=== PATIENT | female | born 1940 | race Caucasian/White ===

== ENCOUNTER 2019-02-27 08:10 | Emergency (ER) | payer MEDICARE ==
[2019-02-27] MEDS ORDERED: Silver Sulfadiazine 1% Cream 50 GM JAR ONE (08:37)
== END 2019-02-27 09:40 | disposition home or self-care (01) ==
LOC: ERS 08:10
DX: T23.271A Burn of second degree of right wrist, initial encounter (principal); X16.XXXA Contact with hot heating appliances, radiators and pipes, initial encounter
CPT/HCPCS: 16020

== ENCOUNTER 2022-02-20 23:18 | Inpatient (IN) | payer MEDICARE ==
[2022-02-20] MEDS ORDERED: VANCOMYCIN 2 GRAM/500 ML BAG 2 GM in Premix Bag 1 BAG IVPB SCH (23:45)
[2022-02-20] MEDS ORDERED: Acetaminophen 650 MG Suppository ONE (23:48)
[2022-02-20] MEDS ORDERED: Acetaminophen 500 MG TAB ONE (23:48)
[2022-02-20] MEDS ORDERED: Cefepime 2 GM VIAL ONE (23:48)
[2022-02-20 23:51] LABS: #Lymphocytes 0.8 thou/uL (1.20-3.40); #Monocytes 0.4 thou/uL (0.11-0.59); #Neutrophils 7.8 thou/uL (1.40-6.50); %Basophils 0.4 % (0.0-1.0); %Eosinophils 0.3 % (0.0-10.0); %Lymphocytes 8.5 % (21.0-51.0); %Monocytes 4.5 % (0.0-10.0); %Neutrophils 86.3 % (42.0-75.0); Mean Corpuscular Volume 78.9 fl (78.0-98.0); Red Blood Cell (RBC) Count 4.87 mill/uL (4.20-5.40); White Blood Cell (WBC) Count 9.1 10x3/uL (4.8-10.8)
[2022-02-21 00:02] LABS: ALT (SGPT) 49 U/L (8-55); AST (SGOT) 59 U/L (5-34); Albumin 2.8 g/dL (3.4-4.8); Alkaline Phosphatase 636 U/L (40-110); Anion Gap 20 mmol/L (10-20); BUN (Urea Nitrogen) 12 mg/dL (9.8-20.1); Bilirubin, Total 0.4 mg/dL (0.2-1.2); Calc. Creatinine Clearance 0 mL/min (70-130); Calcium 9.2 mg/dL (7.8-10.44); Carbon Dioxide 29 mmol/L (23-31); Chloride 95 mmol/L (98-107); Estimated GFR 88; Globulin 4.1 g/dL (2.4-3.5); Glucose 163 mg/dL (83-110); Magnesium 1.7 mg/dL (1.6-2.6); Protein, Total 6.9 g/dL (5.8-8.1); Sodium 139 mmol/L (136-145)
[2022-02-21 00:16] LABS: Anisocytosis SLIGHT = 6-15 cells (100X) (0-5/hpf); Hypochromia SLIGHT = 6-15 cells (100X) (0-5/hpf); MDiff Complete? YES; Mean Corpuscular HGB CONC 28.7 g/dL (32.0-36.0); Mean Corpuscular Hemoglobin 22.7 pg (27.0-31.0); Mean Platelet Volume 6.6 fL (7.4-10.4); Platelet Count 852 10x3/uL (130-400); Platelet Morphology Comment Appears Increased; Polychromasia SLIGHT = 2-3 cells (100X) (0-2/hpf); RBC Distribution Width 16.6 % (11.5-14.5)
[2022-02-21 01:13] LABS: SARS-CoV-2 NAA Rapid Test Not Detected (NotDetected)
[2022-02-21 02:51] LABS: Lactic Acid 2.1 mmol/L (0.5-2.2)
[2022-02-21] MEDS ORDERED: Acetaminophen 650 MG Suppository PR PRN (03:32)
[2022-02-21] MEDS ORDERED: Acetaminophen 325 MG TAB PO PRN (03:32)
[2022-02-21] MEDS: Sodium Chloride 0.9% 1,000 ML IV SCH ×3 (04:00→21:45)
[2022-02-21] MEDS ORDERED: Benzonatate 100 MG CAP PO PRN (04:17)
[2022-02-21] MEDS ORDERED: GUAIFENESIN SF SOLN 200 MG/10 ML UDCUP PO PRN (04:17)
[2022-02-21] MEDS ORDERED: Morphine 4 MG/ML VIAL ONE (04:30)
[2022-02-21] MEDS ORDERED: Morphine 4 MG/ML VIAL SLOW IVP SCH (04:30)
[2022-02-21] MEDS ORDERED: Ketorolac Tromethamine 30 MG/ML VIAL ONE ×2 (05:30→06:12)
[2022-02-21] MEDS ORDERED: Piperacillin/Tazobactam 3.375 GM in Sodium Chloride 0.9% 100 ML IVPB SCH ×3 (06:00→22:00)
[2022-02-21] MEDS ORDERED: Piperacillin/Tazobactam 3.375 GM VIAL ONE ×2 (06:12→11:24)
[2022-02-21 08:12] LABS: INR-International Normal Ratio 1.3; Prothrombin Time 16.6 sec (12.0-14.7)
[2022-02-21 08:13] LABS: PTT 36.7 sec (22.9-36.1)
[2022-02-21] MEDS: Piperacillin/Tazobactam 3.375 GM in Sodium Chloride 0.9% 100 ML IVPB SCH ×2 (11:33→21:52)
[2022-02-21] MEDS ORDERED: FENTANYL 50 MCG/ML 1 ML VIAL ONE (12:52)
[2022-02-21] MEDS ORDERED: Midazolam HCl 2 mg/2 ml Vial ONE (12:52)
[2022-02-21] MEDS ORDERED: Sodium Bicarbonate 2.5 MEQ/5 ML VIAL ONE (12:52)
[2022-02-21 13:39] LABS: Bacteria/HPF None Seen HPF (None Seen); Bilirubin Negative (Negative); Blood, Urine Negative (Negative); Clarity Clear (Clear); Glucose, Urine (Dipstick) Normal (Negative); Ketone, Urine Trace mg/dL (Negative); Leukocyte Negative Leu/uL (Negative); Nitrite Negative (Negative); Protein, Urine (Dipstick) 50 mg/dL (Neg-Trace); RBC/HPF 0-3 HPF (0-3); Urobilinogen Normal mg/dL (Less than 2); WBC/HPF 0-3 HPF (0-3); pH, Urine 5.5 (5.0-9.0)
[2022-02-21 13:41] LABS: Specific Gravity, Urine Greater than 1.060 (1.002-1.036)
[2022-02-21] MEDS ORDERED: Iopamidol-370 76% 500 ML 1 ML ONE (13:47)
[2022-02-21 15:46] LABS: BF Color Brown; Clarity Cloudy/Turbid (Clear)
[2022-02-21 18:50] VITALS: BMI 34.5
[2022-02-21] MEDS: Vancomycin 1 GM in Premix Bag 1 BAG IVPB SCH (23:02)
[2022-02-22] MEDS: Sodium Chloride 0.9% 1,000 ML IV SCH ×4 (03:02→20:59)
[2022-02-22 04:58] LABS: ALT (SGPT) 29 U/L (8-55); AST (SGOT) 46 U/L (5-34); Albumin 1.8 g/dL (3.4-4.8); Alkaline Phosphatase 402 U/L (40-110); Anion Gap 15 mmol/L (10-20); BUN (Urea Nitrogen) 14 mg/dL (9.8-20.1); Bilirubin, Total 0.3 mg/dL (0.2-1.2); Calc. Creatinine Clearance 140 mL/min (70-130); Calcium 8.3 mg/dL (7.8-10.44); Carbon Dioxide 24 mmol/L (23-31); Chloride 104 mmol/L (98-107); Estimated GFR 95; Glucose 97 mg/dL (83-110); Potassium 5.2 mmol/L (3.5-5.1); Protein, Total 5.8 g/dL (5.8-8.1); Sodium 138 mmol/L (136-145)
[2022-02-22] MEDS: Piperacillin/Tazobactam 3.375 GM in Sodium Chloride 0.9% 100 ML IVPB SCH ×3 (05:28→20:59)
[2022-02-22 08:13] LABS: #Lymphocytes 0.8 thou/uL (1.20-3.40); #Monocytes 0.5 thou/uL (0.11-0.59); %Basophils 0.2 % (0.0-1.0); %Eosinophils 0.2 % (0.0-10.0); %Lymphocytes 5.1 % (21.0-51.0); %Monocytes 3.1 % (0.0-10.0); %Neutrophils 91.4 % (42.0-75.0); Hemoglobin 8.2 g/dL (12.0-16.0); Mean Corpuscular HGB CONC 27.3 g/dL (32.0-36.0); Mean Corpuscular Hemoglobin 22.4 pg (27.0-31.0); Mean Corpuscular Volume 81.9 fl (78.0-98.0); Mean Platelet Volume 6.4 fL (7.4-10.4); Platelet Count 546 10x3/uL (130-400); RBC Distribution Width 16.4 % (11.5-14.5); Red Blood Cell (RBC) Count 3.69 mill/uL (4.20-5.40); White Blood Cell (WBC) Count 16.4 10x3/uL (4.8-10.8)
[2022-02-22 08:56] LABS: MDiff Complete? YES; Polychromasia SLIGHT = 2-3 cells (100X) (0-2/hpf)
[2022-02-22] MEDS: Vancomycin 1 GM in Premix Bag 1 BAG IVPB SCH (11:29)
[2022-02-22] MEDS: Heparin 5,000 UNITS/ML VIAL SC SCH ×2 (14:15→21:35)
[2022-02-23] MEDS: Vancomycin 1 GM in Premix Bag 1 BAG IVPB SCH ×2 (01:10→12:10)
[2022-02-23] MEDS: Piperacillin/Tazobactam 3.375 GM in Sodium Chloride 0.9% 100 ML IVPB SCH ×3 (06:13→21:02)
[2022-02-23] MEDS ORDERED: Enoxaparin Sodium 100 MG/ML SYRINGE SC SCH (09:30)
[2022-02-23] MEDS: Heparin 5,000 UNITS/ML VIAL SC SCH (10:06)
[2022-02-23] MEDS: Sodium Chloride 0.9% 1,000 ML IV SCH ×4 (10:12→20:03)
[2022-02-23 10:57] LABS: #Eosinphils 0.1 thou/uL (0.0-0.7); #Lymphocytes 0.8 thou/uL (1.20-3.40); #Monocytes 0.5 thou/uL (0.11-0.59); #Neutrophils 15.3 thou/uL (1.40-6.50); %Basophils 0.3 % (0.0-1.0); %Eosinophils 0.6 % (0.0-10.0); %Monocytes 2.8 % (0.0-10.0); %Neutrophils 91.3 % (42.0-75.0); Hemoglobin 8.2 g/dL (12.0-16.0); Mean Corpuscular Volume 82.1 fl (78.0-98.0); Mean Platelet Volume 6.7 fL (7.4-10.4); Platelet Count 574 10x3/uL (130-400); RBC Distribution Width 16.2 % (11.5-14.5); Red Blood Cell (RBC) Count 3.55 mill/uL (4.20-5.40); White Blood Cell (WBC) Count 16.8 10x3/uL (4.8-10.8)
[2022-02-23 11:07] LABS: Vancomycin, Trough 13.5 ug/mL
[2022-02-23] MEDS ORDERED: VANCOMYCIN 1.25 GM/250 ML BAG 1.25 GM in Premix Bag 1 BAG IVPB SCH (12:00)
[2022-02-23] MEDS: Enoxaparin Sodium 100 MG/ML SYRINGE SC SCH (21:02)
[2022-02-24 05:04] LABS: Anion Gap 10 mmol/L (10-20); Calc. Creatinine Clearance 137 mL/min (70-130); Calcium 8.5 mg/dL (7.8-10.44); Carbon Dioxide 34 mmol/L (23-31); Chloride 102 mmol/L (98-107); Estimated GFR 95; Glucose 117 mg/dL (83-110); Magnesium 1.9 mg/dL (1.6-2.6); Potassium 4.4 mmol/L (3.5-5.1); Sodium 142 mmol/L (136-145)
[2022-02-24 05:55] LABS: #Eosinphils 0.1 thou/uL (0.0-0.7); #Lymphocytes 1.1 thou/uL (1.20-3.40); #Monocytes 0.5 thou/uL (0.11-0.59); #Neutrophils 12.7 thou/uL (1.40-6.50); %Basophils 0.1 % (0.0-1.0); %Lymphocytes 7.5 % (21.0-51.0); %Monocytes 3.6 % (0.0-10.0); %Neutrophils 87.8 % (42.0-75.0); Hemoglobin 8.1 g/dL (12.0-16.0); Mean Corpuscular HGB CONC 28.4 g/dL (32.0-36.0); Mean Corpuscular Volume 80.8 fl (78.0-98.0); Mean Platelet Volume 6.1 fL (7.4-10.4); Platelet Count 519 10x3/uL (130-400); Red Blood Cell (RBC) Count 3.51 mill/uL (4.20-5.40); White Blood Cell (WBC) Count 14.5 10x3/uL (4.8-10.8)
[2022-02-24] MEDS: Piperacillin/Tazobactam 3.375 GM in Sodium Chloride 0.9% 100 ML IVPB SCH ×3 (06:17→21:04)
[2022-02-24 08:19] LABS: BUN (Urea Nitrogen) 11 mg/dL (9.8-20.1)
[2022-02-24] MEDS: Enoxaparin Sodium 100 MG/ML SYRINGE SC SCH ×2 (09:51→21:04)
[2022-02-24] MEDS: Sodium Chloride 0.9% 1,000 ML IV SCH (16:03)
[2022-02-25] MEDS: HYDROcodone/Acetaminophen 5/325 mg Tablet PO PRN ×2 (01:55→20:16)
[2022-02-25 05:21] LABS: ALT (SGPT) 19 U/L (8-55); AST (SGOT) 34 U/L (5-34); Alkaline Phosphatase 564 U/L (40-110); Anion Gap 11 mmol/L (10-20); BUN (Urea Nitrogen) 9 mg/dL (9.8-20.1); Bilirubin, Total 0.2 mg/dL (0.2-1.2); Calc. Creatinine Clearance 140 mL/min (70-130); Calcium 8.5 mg/dL (7.8-10.44); Carbon Dioxide 34 mmol/L (23-31); Chloride 100 mmol/L (98-107); Estimated GFR 95; Globulin 3.4 g/dL (2.4-3.5); Glucose 128 mg/dL (83-110); Potassium 4.3 mmol/L (3.5-5.1); Protein, Total 5.4 g/dL (5.8-8.1); Sodium 141 mmol/L (136-145)
[2022-02-25 05:26] LABS: #Basophils 0.1 thou/uL (0.0-0.2); #Eosinphils 0.1 thou/uL (0.0-0.7); #Lymphocytes 0.9 thou/uL (1.20-3.40); #Monocytes 0.6 thou/uL (0.11-0.59); #Neutrophils 9.8 thou/uL (1.40-6.50); %Basophils 0.4 % (0.0-1.0); %Eosinophils 1.2 % (0.0-10.0); %Lymphocytes 7.6 % (21.0-51.0); %Monocytes 5.1 % (0.0-10.0); %Neutrophils 85.6 % (42.0-75.0); Hemoglobin 7.8 g/dL (12.0-16.0); Mean Corpuscular HGB CONC 28.3 g/dL (32.0-36.0); Mean Corpuscular Hemoglobin 23.1 pg (27.0-31.0); Mean Corpuscular Volume 81.9 fl (78.0-98.0); Platelet Count 479 10x3/uL (130-400); RBC Distribution Width 16.4 % (11.5-14.5); Red Blood Cell (RBC) Count 3.36 mill/uL (4.20-5.40); White Blood Cell (WBC) Count 11.4 10x3/uL (4.8-10.8)
[2022-02-25] MEDS: Piperacillin/Tazobactam 3.375 GM in Sodium Chloride 0.9% 100 ML IVPB SCH ×3 (05:37→21:39)
[2022-02-25] MEDS: Lansoprazole 3 MG/ML ORAL SUSPENSION PO SCH (08:41)
[2022-02-25] MEDS: Enoxaparin Sodium 100 MG/ML SYRINGE SC SCH ×2 (10:01→20:17)
[2022-02-25] MEDS: Sodium Chloride 0.9% 1,000 ML IV SCH (16:29)
[2022-02-26 05:04] LABS: #Eosinphils 0.1 thou/uL (0.0-0.7); #Lymphocytes 0.9 thou/uL (1.20-3.40); #Monocytes 0.6 thou/uL (0.11-0.59); %Basophils 0.2 % (0.0-1.0); %Eosinophils 0.9 % (0.0-10.0); %Lymphocytes 7.8 % (21.0-51.0); %Monocytes 5.2 % (0.0-10.0); %Neutrophils 85.9 % (42.0-75.0); Hemoglobin 7.9 g/dL (12.0-16.0); Mean Corpuscular HGB CONC 29.2 g/dL (32.0-36.0); Mean Corpuscular Hemoglobin 23.5 pg (27.0-31.0); Mean Corpuscular Volume 80.4 fl (78.0-98.0); Mean Platelet Volume 7.1 fL (7.4-10.4); Platelet Count 484 10x3/uL (130-400); RBC Distribution Width 15.9 % (11.5-14.5); Red Blood Cell (RBC) Count 3.37 mill/uL (4.20-5.40); White Blood Cell (WBC) Count 11.6 10x3/uL (4.8-10.8)
[2022-02-26] MEDS: Piperacillin/Tazobactam 3.375 GM in Sodium Chloride 0.9% 100 ML IVPB SCH ×3 (05:06→22:30)
[2022-02-26 05:26] LABS: ALT (SGPT) 20 U/L (8-55); AST (SGOT) 36 U/L (5-34); Alkaline Phosphatase 542 U/L (40-110); Anion Gap 11 mmol/L (10-20); BUN (Urea Nitrogen) 8 mg/dL (9.8-20.1); Calc. Creatinine Clearance 159 mL/min (70-130); Calcium 8.8 mg/dL (7.8-10.44); Carbon Dioxide 36 mmol/L (23-31); Chloride 96 mmol/L (98-107); Estimated GFR 98; Globulin 3.5 g/dL (2.4-3.5); Glucose 100 mg/dL (83-110); Potassium 4.2 mmol/L (3.5-5.1); Protein, Total 5.5 g/dL (5.8-8.1); Sodium 139 mmol/L (136-145)
[2022-02-26 06:41] LABS: Bilirubin, Total 0.2 mg/dL (0.2-1.2)
[2022-02-26] MEDS ORDERED: Lansoprazole 15 MG/5 ML (BATCHED)UDCUP PO SCH (09:45)
[2022-02-26] MEDS: Enoxaparin Sodium 100 MG/ML SYRINGE SC SCH ×2 (10:11→22:29)
[2022-02-26] MEDS: HYDROcodone/Acetaminophen 5/325 mg Tablet PO PRN ×2 (14:49→22:29)
[2022-02-26] MEDS: Sodium Chloride 0.9% 1,000 ML IV SCH (17:04)
[2022-02-27 05:20] LABS: ALT (SGPT) 19 U/L (8-55); AST (SGOT) 39 U/L (5-34); Albumin 2.1 g/dL (3.4-4.8); Alkaline Phosphatase 494 U/L (40-110); BUN (Urea Nitrogen) 9 mg/dL (9.8-20.1); Bilirubin, Total 0.3 mg/dL (0.2-1.2); Calc. Creatinine Clearance 163 mL/min (70-130); Calcium 8.6 mg/dL (7.8-10.44); Estimated GFR 99; Globulin 3.6 g/dL (2.4-3.5); Glucose 127 mg/dL (83-110); Protein, Total 5.7 g/dL (5.8-8.1)
[2022-02-27 05:39] LABS: Anion Gap 16 mmol/L (10-20); Carbon Dioxide 33 mmol/L (23-31); Chloride 94 mmol/L (98-107); Potassium 3.6 mmol/L (3.5-5.1); Sodium 139 mmol/L (136-145)
[2022-02-27 06:06] LABS: #Eosinphils 0.2 thou/uL (0.0-0.7); #Monocytes 0.8 thou/uL (0.11-0.59); #Neutrophils 10.2 thou/uL (1.40-6.50); %Basophils 0.1 % (0.0-1.0); %Eosinophils 1.5 % (0.0-10.0); %Lymphocytes 8.5 % (21.0-51.0); %Monocytes 6.3 % (0.0-10.0); %Neutrophils 83.6 % (42.0-75.0); Hemoglobin 8.1 g/dL (12.0-16.0); Mean Corpuscular HGB CONC 29.2 g/dL (32.0-36.0); Mean Corpuscular Hemoglobin 23.1 pg (27.0-31.0); Mean Corpuscular Volume 79.3 fl (78.0-98.0); Mean Platelet Volume 6.8 fL (7.4-10.4); Platelet Count 476 10x3/uL (130-400); RBC Distribution Width 16.1 % (11.5-14.5); Red Blood Cell (RBC) Count 3.51 mill/uL (4.20-5.40); White Blood Cell (WBC) Count 12.2 10x3/uL (4.8-10.8)
[2022-02-27] MEDS: Piperacillin/Tazobactam 3.375 GM in Sodium Chloride 0.9% 100 ML IVPB SCH (06:59)
[2022-02-27] MEDS: Enoxaparin Sodium 100 MG/ML SYRINGE SC SCH ×2 (10:33→21:18)
[2022-02-27] MEDS: Lansoprazole 15 MG/5 ML (BATCHED)UDCUP PO SCH (10:33)
[2022-02-27] MEDS ORDERED: Meropenem 1 GM in Sodium Chloride 0.9% 100 ML IVPB SCH ×2 (11:45→14:00)
[2022-02-27] MEDS: Lansoprazole 3 MG/ML ORAL SUSPENSION PO SCH (12:07)
[2022-02-27] MEDS: Sodium Chloride 0.9% 1,000 ML IV SCH (19:23)
[2022-02-27] MEDS: HYDROcodone/Acetaminophen 5/325 mg Tablet PO PRN (21:18)
[2022-02-27] MEDS ORDERED: Nitroglycerin 0.4 MG TAB (25 Tab Bottle) SL PRN (21:25)
[2022-02-27 22:19] LABS: Troponin I Less than 0.010 ng/mL (< 0.028)
[2022-02-27] MEDS: Meropenem 1 GM in Sodium Chloride 0.9% 100 ML IVPB SCH (23:25)
[2022-02-28 04:43] LABS: #Eosinphils 0.1 thou/uL (0.0-0.7); #Lymphocytes 1.2 thou/uL (1.20-3.40); #Monocytes 0.7 thou/uL (0.11-0.59); #Neutrophils 9.1 thou/uL (1.40-6.50); %Basophils 0.2 % (0.0-1.0); %Eosinophils 1.3 % (0.0-10.0); %Lymphocytes 10.9 % (21.0-51.0); %Monocytes 6.2 % (0.0-10.0); %Neutrophils 81.4 % (42.0-75.0); Hemoglobin 8.4 g/dL (12.0-16.0); Mean Corpuscular HGB CONC 28.9 g/dL (32.0-36.0); Mean Corpuscular Volume 79.6 fl (78.0-98.0); Mean Platelet Volume 6.9 fL (7.4-10.4); Platelet Count 506 10x3/uL (130-400); RBC Distribution Width 16.9 % (11.5-14.5); Red Blood Cell (RBC) Count 3.64 mill/uL (4.20-5.40); White Blood Cell (WBC) Count 11.2 10x3/uL (4.8-10.8)
[2022-02-28 05:05] LABS: Anion Gap 18 mmol/L (10-20); Carbon Dioxide 33 mmol/L (23-31); Chloride 95 mmol/L (98-107); Potassium 3.6 mmol/L (3.5-5.1); Sodium 142 mmol/L (136-145)
[2022-02-28 05:06] LABS: ALT (SGPT) 18 U/L (8-55); AST (SGOT) 37 U/L (5-34); Alkaline Phosphatase 487 U/L (40-110); BUN (Urea Nitrogen) 10 mg/dL (9.8-20.1); Bilirubin, Total Less than 0.2 mg/dL (0.2-1.2); Calc. Creatinine Clearance 163 mL/min (70-130); Calcium 8.6 mg/dL (7.8-10.44); Estimated GFR 99; Globulin 3.5 g/dL (2.4-3.5); Glucose 110 mg/dL (83-110); Protein, Total 5.5 g/dL (5.8-8.1)
[2022-02-28] MEDS: Meropenem 1 GM in Sodium Chloride 0.9% 100 ML IVPB SCH ×3 (05:54→23:02)
[2022-02-28] MEDS: Enoxaparin Sodium 100 MG/ML SYRINGE SC SCH ×2 (09:34→21:10)
[2022-02-28] MEDS: Lansoprazole 15 MG/5 ML (BATCHED)UDCUP PO SCH (09:34)
[2022-02-28] MEDS ORDERED: Iopamidol 370 76% 100 ML VIAL ONE (10:08)
[2022-02-28] MEDS: HYDROcodone/Acetaminophen 5/325 mg Tablet PO PRN (14:55)
[2022-03-01] MEDS: HYDROcodone/Acetaminophen 5/325 mg Tablet PO PRN ×2 (04:10→20:56)
[2022-03-01] MEDS: Meropenem 1 GM in Sodium Chloride 0.9% 100 ML IVPB SCH ×3 (05:27→21:03)
[2022-03-01 05:31] LABS: #Eosinphils 0.1 thou/uL (0.0-0.7); #Lymphocytes 1.1 thou/uL (1.20-3.40); #Monocytes 0.7 thou/uL (0.11-0.59); #Neutrophils 9.5 thou/uL (1.40-6.50); %Basophils 0.1 % (0.0-1.0); %Lymphocytes 9.9 % (21.0-51.0); %Monocytes 6.4 % (0.0-10.0); %Neutrophils 82.5 % (42.0-75.0); Hemoglobin 8.1 g/dL (12.0-16.0); Mean Corpuscular HGB CONC 28.5 g/dL (32.0-36.0); Mean Corpuscular Hemoglobin 22.8 pg (27.0-31.0); Mean Corpuscular Volume 79.9 fl (78.0-98.0); Mean Platelet Volume 6.8 fL (7.4-10.4); Platelet Count 495 10x3/uL (130-400); RBC Distribution Width 17.1 % (11.5-14.5); Red Blood Cell (RBC) Count 3.55 mill/uL (4.20-5.40); White Blood Cell (WBC) Count 11.5 10x3/uL (4.8-10.8)
[2022-03-01 05:44] LABS: ALT (SGPT) 17 U/L (8-55); AST (SGOT) 37 U/L (5-34); Albumin 2.1 g/dL (3.4-4.8); Alkaline Phosphatase 470 U/L (40-110); BUN (Urea Nitrogen) 9 mg/dL (9.8-20.1); Bilirubin, Total 0.2 mg/dL (0.2-1.2); Calc. Creatinine Clearance 170 mL/min (70-130); Calcium 8.5 mg/dL (7.8-10.44); Estimated GFR 100; Globulin 3.3 g/dL (2.4-3.5); Glucose 145 mg/dL (83-110); Magnesium 1.8 mg/dL (1.6-2.6); Phosphorus 2.2 mg/dL (2.3-4.7); Protein, Total 5.4 g/dL (5.8-8.1)
[2022-03-01 05:53] LABS: Anion Gap 15 mmol/L (10-20); Carbon Dioxide 35 mmol/L (23-31); Chloride 94 mmol/L (98-107); Potassium 3.9 mmol/L (3.5-5.1); Sodium 140 mmol/L (136-145)
[2022-03-01] MEDS: Lansoprazole 15 MG/5 ML (BATCHED)UDCUP PO SCH (09:40)
[2022-03-01] MEDS: Enoxaparin Sodium 100 MG/ML SYRINGE SC SCH ×2 (09:42→20:56)
[2022-03-02] MEDS: HYDROcodone/Acetaminophen 5/325 mg Tablet PO PRN ×4 (03:44→23:03)
[2022-03-02] MEDS: Meropenem 1 GM in Sodium Chloride 0.9% 100 ML IVPB SCH ×3 (05:24→21:54)
[2022-03-02] MEDS: Enoxaparin Sodium 100 MG/ML SYRINGE SC SCH ×2 (08:54→21:54)
[2022-03-02] MEDS: Lansoprazole 15 MG/5 ML (BATCHED)UDCUP PO SCH (10:18)
[2022-03-03] MEDS: Meropenem 1 GM in Sodium Chloride 0.9% 100 ML IVPB SCH ×3 (05:45→21:15)
[2022-03-03] MEDS: Enoxaparin Sodium 100 MG/ML SYRINGE SC SCH ×2 (08:36→20:00)
[2022-03-03] MEDS: Lansoprazole 15 MG/5 ML (BATCHED)UDCUP PO SCH (09:36)
[2022-03-03] MEDS: HYDROcodone/Acetaminophen 5/325 mg Tablet PO PRN (20:00)
[2022-03-04] MEDS: Meropenem 1 GM in Sodium Chloride 0.9% 100 ML IVPB SCH ×3 (05:32→20:28)
[2022-03-04] MEDS: Enoxaparin Sodium 100 MG/ML SYRINGE SC SCH ×2 (09:38→20:28)
[2022-03-04] MEDS: Lansoprazole 15 MG/5 ML (BATCHED)UDCUP PO SCH (09:43)
[2022-03-04] MEDS: HYDROcodone/Acetaminophen 5/325 mg Tablet PO PRN ×2 (14:19→22:42)
[2022-03-05] MEDS: Meropenem 1 GM in Sodium Chloride 0.9% 100 ML IVPB SCH ×3 (05:37→21:20)
[2022-03-05 06:37] LABS: Hemoglobin 8.1 g/dL (12.0-16.0); Mean Corpuscular Hemoglobin 23.5 pg (27.0-31.0); Mean Corpuscular Volume 80.9 fl (78.0-98.0); Mean Platelet Volume 6.7 fL (7.4-10.4); Platelet Count 528 10x3/uL (130-400); Red Blood Cell (RBC) Count 3.46 mill/uL (4.20-5.40); White Blood Cell (WBC) Count 14.8 10x3/uL (4.8-10.8)
[2022-03-05 06:52] LABS: BUN (Urea Nitrogen) 10 mg/dL (9.8-20.1); Calc. Creatinine Clearance 175 mL/min (70-130); Calcium 8.9 mg/dL (7.8-10.44); Estimated GFR 101; Glucose 101 mg/dL (83-110)
[2022-03-05 07:01] LABS: Anion Gap 17 mmol/L (10-20); Carbon Dioxide 38 mmol/L (23-31); Chloride 86 mmol/L (98-107); Potassium 4.8 mmol/L (3.5-5.1); Sodium 136 mmol/L (136-145)
[2022-03-05] MEDS: Lansoprazole 15 MG/5 ML (BATCHED)UDCUP PO SCH (08:48)
[2022-03-05] MEDS: Enoxaparin Sodium 100 MG/ML SYRINGE SC SCH ×2 (08:48→21:20)
[2022-03-06] MEDS: Meropenem 1 GM in Sodium Chloride 0.9% 100 ML IVPB SCH ×3 (05:17→21:29)
[2022-03-06] MEDS: HYDROcodone/Acetaminophen 5/325 mg Tablet PO PRN (07:47)
[2022-03-06] MEDS: Lansoprazole 15 MG/5 ML (BATCHED)UDCUP PO SCH (08:36)
[2022-03-06] MEDS: Enoxaparin Sodium 100 MG/ML SYRINGE SC SCH ×2 (08:38→21:29)
[2022-03-07] MEDS: HYDROcodone/Acetaminophen 5/325 mg Tablet PO PRN (02:57)
[2022-03-07] MEDS: Meropenem 1 GM in Sodium Chloride 0.9% 100 ML IVPB SCH ×3 (06:18→21:36)
[2022-03-07] MEDS: Lansoprazole 15 MG/5 ML (BATCHED)UDCUP PO SCH (08:10)
[2022-03-07] MEDS: Enoxaparin Sodium 100 MG/ML SYRINGE SC SCH (08:10)
[2022-03-07] MEDS: Apixaban 5 MG TAB PO SCH (21:36)
[2022-03-08] MEDS: HYDROcodone/Acetaminophen 5/325 mg Tablet PO PRN ×2 (03:38→23:01)
[2022-03-08 05:14] LABS: #Eosinphils 0.1 thou/uL (0.0-0.7); #Lymphocytes 0.9 thou/uL (1.20-3.40); #Monocytes 0.9 thou/uL (0.11-0.59); %Eosinophils 1.2 % (0.0-10.0); %Lymphocytes 10.5 % (21.0-51.0); %Monocytes 9.9 % (0.0-10.0); %Neutrophils 78.5 % (42.0-75.0); Hemoglobin 6.8 g/dL (12.0-16.0); Mean Corpuscular HGB CONC 28.3 g/dL (32.0-36.0); Mean Platelet Volume 6.5 fL (7.4-10.4); Platelet Count 506 10x3/uL (130-400); RBC Distribution Width 18.6 % (11.5-14.5); Red Blood Cell (RBC) Count 2.97 mill/uL (4.20-5.40)
[2022-03-08] MEDS: Meropenem 1 GM in Sodium Chloride 0.9% 100 ML IVPB SCH ×3 (05:29→22:18)
[2022-03-08] MEDS: Apixaban 5 MG TAB PO SCH ×2 (08:39→22:18)
[2022-03-08] MEDS: Lansoprazole 15 MG/5 ML (BATCHED)UDCUP PO SCH (08:42)
[2022-03-08 18:47] LABS: Hemoglobin 7.5 g/dL (12.0-16.0)
[2022-03-09 05:47] LABS: #Eosinphils 0.1 thou/uL (0.0-0.7); #Lymphocytes 1.1 thou/uL (1.20-3.40); #Monocytes 1.2 thou/uL (0.11-0.59); #Neutrophils 7.7 thou/uL (1.40-6.50); %Basophils 0.3 % (0.0-1.0); %Eosinophils 1.4 % (0.0-10.0); %Lymphocytes 10.4 % (21.0-51.0); %Monocytes 11.4 % (0.0-10.0); %Neutrophils 76.5 % (42.0-75.0); Hemoglobin 7.3 g/dL (12.0-16.0); Mean Corpuscular HGB CONC 28.9 g/dL (32.0-36.0); Mean Corpuscular Hemoglobin 23.1 pg (27.0-31.0); Mean Platelet Volume 6.6 fL (7.4-10.4); Platelet Count 503 10x3/uL (130-400); RBC Distribution Width 18.3 % (11.5-14.5); Red Blood Cell (RBC) Count 3.17 mill/uL (4.20-5.40); White Blood Cell (WBC) Count 10.1 10x3/uL (4.8-10.8)
[2022-03-09] MEDS: Meropenem 1 GM in Sodium Chloride 0.9% 100 ML IVPB SCH ×3 (06:28→21:48)
[2022-03-09] MEDS: Apixaban 5 MG TAB PO SCH ×2 (09:25→21:48)
[2022-03-09] MEDS: Lansoprazole 15 MG/5 ML (BATCHED)UDCUP PO SCH (09:25)
[2022-03-10] MEDS: Meropenem 1 GM in Sodium Chloride 0.9% 100 ML IVPB SCH (05:31)
[2022-03-10 07:23] VITALS: BP 114/72; TEMP 97.7
[2022-03-10] MEDS ORDERED: Amoxicillin/Potassium Clav 875 MG TAB PO SCH (09:00)
[2022-03-10] MEDS ORDERED: metroNIDAZOLE 500 MG TAB PO SCH (09:00)
[2022-03-10] MEDS: Apixaban 5 MG TAB PO SCH (09:28)
[2022-03-10] MEDS: Lansoprazole 15 MG/5 ML (BATCHED)UDCUP PO SCH (09:29)
[2022-03-10] MEDS: HYDROcodone/Acetaminophen 5/325 mg Tablet PO PRN (12:26)
== END 2022-03-10 16:50 | DRG 871 ==
LOC: ERS 23:18 → ERHOLD 02-21 02:11 → 2NO 02-21 17:59 → MSONC 03-02 15:28
PROVIDERS: ADMIT Internal Medicine; ATTEND Internal Medicine
PROC: 0W9G30Z Drainage of Peritoneal Cavity with Drainage Device, Percutaneous Approach (ICD-10-PCS; principal; 2022-02-21)
PROC: 3E03329 Introduction of Other Anti-infective into Peripheral Vein, Percutaneous Approach (ICD-10-PCS; 2022-02-21)
PROC: 0W9G30Z Drainage of Peritoneal Cavity with Drainage Device, Percutaneous Approach (ICD-10-PCS; 2022-03-06)
DX: A41.51 Sepsis due to Escherichia coli [E. coli] (principal); K63.1 Perforation of intestine (nontraumatic); K65.1 Peritoneal abscess; K63.0 Abscess of intestine; C18.9 Malignant neoplasm of colon, unspecified; C78.7 Secondary malignant neoplasm of liver and intrahepatic bile duct; C18.0 Malignant neoplasm of cecum; J90 Pleural effusion, not elsewhere classified; I82.890 Acute embolism and thrombosis of other specified veins; Z20.822 Contact with and (suspected) exposure to COVID-19; Z90.49 Acquired absence of other specified parts of digestive tract; Z98.890 Other specified postprocedural states; Z90.710 Acquired absence of both cervix and uterus; Z98.51 Tubal ligation status
CPT/HCPCS: 36415; 49020; 70450; 71045; 71275; 74177; 77002; 80048; 80053; 80202; 81003; 81015; 83605; 83735; 83880; 84100; 84443; 84484; 85025; 85027; 85060; 85610; 85730; 87040; 87070; 87077; 87086; 87186; 87205; 87811; 89051; 93005; 93010; 96365; 96375; J0692; J1642; J1644; J1650; J1885; J2185; J2250; J2270; J2543; J3010; J3370; J3370-JW; J3490; J7050; Q9967